=== PATIENT | female | born 1955 ===

== ENCOUNTER 2018-04-21 08:18 | Emergency (ER) | payer OTHER ==
[~2018-04-21] VITALS: Ht 160 cm; Wt 81.6 kg
[2018-04-21] MEDS ORDERED: COZAAR100 MG PO (08:57)
[2018-04-21] MEDS ORDERED: METFORMIN HCL1000 MG PO (08:58)
[2018-04-21] MEDS ORDERED: GLIMEPIRIDE4 MG PO (08:59)
== END 2018-04-21 12:51 | disposition home or self-care (01) ==
LOC: ER 08:18
DX: R42 Dizziness and giddiness (principal)